=== PATIENT | female | born 1950 | race Caucasian/White ===

== ENCOUNTER 2017-08-22 09:18 | Emergency (ER) | payer MEDICARE, BC ==
[2017-08-22 09:30] VITALS: BP 134/73
--- NOTE | 2017-08-22 10:03 | UC ---
Lower Extremity/Ankle HPI - HPI Summary HPI Summary: ONSET OF RIGHT HEEL PAIN 2 DAYS AGO. WORSE AFTER WALKING ON IT OVER THE DAY. NO TRAUMA OR DISCRETE INJURY. NO SWELLING. PT IS RETIRED. - History of Current Complaint Chief Complaint: UCLowerExtremity Stated Complaint: FOOT INJURY Time Seen by Provider: 08/22/17 09:57 Hx Obtained From: Patient Onset/Duration: Gradual Onset, Lasting Days, Still Present Severity Initially: Moderate Severity Currently: Moderate Pain Intensity: 5 Pain Scale Used: 0-10 Numeric Aggravating Factor(s): Standing, Ambulation Alleviating Factor(s): Rest Able to Bear Weight: Yes - Allergies/Home Medications Allergies/Adverse Reactions: Allergies Allergy/AdvReac Type Severity Reaction Status Date / Time Sulfa Antibiotics Allergy Intermediate Rash Verified 07/20/15 13:22 PMH/Surg Hx/FS Hx/Imm Hx Psychological History: Depression - Surgical History Surgical History: Yes Surgery Procedure, Year, and Place: nasal surgery 10 years ago; repair of deviated septum & "cleaned out" her sinuses. - Family History Known Family History: Positive: Hypertension - Social History Alcohol Use: Occasionally Substance Use Type: None Smoking Status (MU): Current Some Day Smoker Type: Cigarettes Amount Used/How Often: 1/2 PPD Length of Time of Smoking/Using Tobacco: 40 YEARS Have You Smoked in the Last Year: No Household Exposure Type: Cigarettes Review of Systems Constitutional: Negative Skin: Negative Respiratory: Negative Cardiovascular: Negative Gastrointestinal: Negative Musculoskeletal: Other: - RIGHT HEEL PAIN All Other Systems Reviewed And Are Negative: Yes Physical Exam Triage Information Reviewed: Yes Appearance: Well-Appearing, No Pain Distress, Well-Nourished Vital Signs: Initial Vital Signs Temp 96.8 F 08/22/17 09:25 Pulse 93 08/22/17 09:25 Resp 18 08/22/17 09:25 BP 134/73 08/22/17 09:25 Pulse Ox 100 08/22/17 09:25 Vital Signs Reviewed: Yes Eyes: Positive: Conjunctiva Clear ENT: Positive: Hearing grossly normal Neck: Positive: Supple Respiratory: Positive: No respiratory distress, No accessory muscle use Cardiovascular: Positive: Pulses Normal Abdomen Description: Positive: Soft Musculoskeletal: Positive: ROM Intact, No Edema, Other: - TTP RIGHT HEEL, PROXIMALLY AND LATERALLY. NOT TENDER OVER PLANTAR FASCIA Neurological: Positive: Alert Psychological: Positive: Age Appropriate Behavior Skin: Negative: rashes Diagnostics - Radiology RIGHT HEEL XRAY Xray Interpretation: No Acute Changes Radiology Interpretation Completed By: Radiologist Lower Extremity Course/Dx - Differential Dx/Diagnosis Provider Diagnoses: RIGHT HEEL PAIN Discharge - Discharge Plan Condition: Stable Disposition: HOME Referrals: Marlene Woodard MD [Primary Care Provider] - If Needed Additional Instructions: UNCLEAR CAUSE OF YOUR HEEL PAIN. CONSIDER THAT IT MAY BE DUE TO THE WAY YOUR BODY WEIGHT IS DISTRIBUTED WHEN YOU WALK IN CONJUNCTION WITH SHOES THAT MAY LACK PROPER SUPPORT. XRAY TODAY UNREMARKABLE. FOLLOW-UP WITH PODIATRY FOR FURTHER EVALUATION. PODIATRY IN [facility] Dr. Jasiel Latham [address] Rufino Harry. Please call his office at [phone] to make an appointment to be seen Dr. Master Hagen. Please call his office at [phone] to make an appointment to be seen
--- NOTE | 2017-08-22 10:30 | RAD ---
HISTORY: Right heel pain COMPARISONS: None VIEWS: 4, lateral, axial, and bilateral oblique views of the right calcaneus FINDINGS: BONE DENSITY: Normal. BONES: There is no displaced fracture. JOINTS: There is no arthropathy. ALIGNMENT: There is no dislocation. SOFT TISSUES: Unremarkable. OTHER FINDINGS: None. IMPRESSION: NO ACUTE OSSEOUS INJURY. IF SYMPTOMS PERSIST, RECOMMEND REPEAT IMAGING.
== END 2017-08-22 11:07 | disposition home or self-care (01) ==
LOC: UCEAST 09:18
DX: M79.671 Pain in right foot (principal); Z72.0 Tobacco use
CPT/HCPCS: 99211; G0463

== ENCOUNTER 2018-02-06 09:25 | Day surgery (SDC) | payer MEDICARE, BC ==
[~2018-02-06 09:25] MED LIST: Acetaminophen TAB* 325 MG PO PRN; Buffered Lidocaine 0.9% SYRIN* 5 ML/SYR SYRINGE INTRADERM ONE; Cyclopentolate 1% OPTH.SOL* 2 ML BTL ONE; Ketorolac 0.5% OPHTH (NF) 0.5 % 5 ML BTL ONE; Lidocaine 1% MPF* 2 ML VIAL ONE; Lidocaine 2% EPI 1:200000 MPF*10-20 ML VIAL ONE; Neomycin/Polymy/Dex OPTH.SUSP* MAXITROL 0.1% 5 ML ONE; Phenylephrine 2.5% OPTH.SOL* 2 ML BTL ONE; Povidone Iodine 5% OPTH* 30 ML BTL ONE; Proparacaine 0.5% OPHTH.SOL* 15 ML BTL ONE; acetaZOLAMIDE TAB* 250 MG ONE
[2018-02-06] MEDS ORDERED: Midazolam* 1 MG/ML 2 ML VIAL (2 MG) ONE ×2 (11:02→11:31)
[2018-02-06 12:20] VITALS: BP 121/71
--- NOTE | 2018-02-06 12:25 | OP ---
DATE OF OPERATION: 02/06/2018. DATE OF : 1950. SURGEON: Toni Scales M.D. PREOPERATIVE DIAGNOSIS: Cataract right eye. POSTOPERATIVE DIAGNOSIS: Cataract right eye. OPERATIVE PROCEDURE: Extracapsular cataract extraction with intraocular lens implant right eye. PROCEDURE: The patient was brought to the operating room after being given 1/2% Alcaine with epineph rine drops in the preoperative area. The eye was prepped and draped in the usual sterile fashion. S terile drape and eyelid speculum were placed. Again, topical 1/2% Alcaine with epinephrine was given . A paracentesis incision was made at the 9 o'clock position with the No.75 blade. Clear cornea inc ision 2.2 x 2.2-mm was created at the 12 o'clock position starting at the anterior limbus using the 2 .2-mm keratome. The anterior chamber was irrigated with 0.4 mL of 1% non-preservative intracameral l idocaine and filled with DisCoVisc. A capsulorrhexis was completed using the cystotome and the Utrat a forceps. Hydrodissection was performed with balanced salt solution. The lens nucleus was removed w ith the Phacoemulsification handpiece without incident. Cortex was removed with the irrigation-aspir ation handpiece. The capsular bag was re-inflated using DisCoVisc and an [id number] implant was inser yaz with the shooter, oriented to the 82 degree meridian. Horizontal reference wilcox were made with the patient in the seated position in the preoperative area. The irrigation-aspiration handpiece was used to remove all residual DisCoVisc. The eye was refilled with balanced salt solution and the wou nd checked and found to be watertight. Topical Maxitrol drops were given. [id number]/[facility] #: [id number]
== END 2018-02-06 12:04 | disposition home or self-care (01) ==
LOC: OREAST 09:25
PROVIDERS: ATTEND Specialist
DX: H25.811 Combined forms of age-related cataract, right eye (principal); F17.210 Nicotine dependence, cigarettes, uncomplicated
CPT/HCPCS: A9270-GY; J2250; V2787

== ENCOUNTER 2018-02-13 07:02 | Day surgery (SDC) | payer MEDICARE, BC ==
[~2018-02-13 07:02] MED LIST changes: -Acetaminophen TAB* 325 MG PO PRN; -Cyclopentolate 1% OPTH.SOL* 2 ML BTL ONE; -Ketorolac 0.5% OPHTH (NF) 0.5 % 5 ML BTL ONE; -Lidocaine 1% MPF* 2 ML VIAL ONE; -Lidocaine 2% EPI 1:200000 MPF*10-20 ML VIAL ONE; -Neomycin/Polymy/Dex OPTH.SUSP* MAXITROL 0.1% 5 ML ONE; -Phenylephrine 2.5% OPTH.SOL* 2 ML BTL ONE; -Povidone Iodine 5% OPTH* 30 ML BTL ONE; -Proparacaine 0.5% OPHTH.SOL* 15 ML BTL ONE; -acetaZOLAMIDE TAB* 250 MG ONE
[2018-02-13] MEDS ORDERED: Midazolam* 1 MG/ML 2 ML VIAL (2 MG) ONE (08:45)
[2018-02-13] MEDS ORDERED: Propofol* 10 MG/ML 20 ML BTL IV PUSH ONE (08:55)
[2018-02-13 09:07] VITALS: BP 116/65
[2018-02-13] MEDS ORDERED: Lidocaine 2% EPI 1:200000 MPF*10-20 ML VIAL ONE (12:17)
[2018-02-13] MEDS ORDERED: Phenylephrine 2.5% OPTH.SOL* 2 ML BTL ONE (12:17)
[2018-02-13] MEDS ORDERED: Cyclopentolate 1% OPTH.SOL* 2 ML BTL ONE (12:17)
[2018-02-13] MEDS ORDERED: Lidocaine 1% MPF* 2 ML VIAL ONE (12:17)
[2018-02-13] MEDS ORDERED: Povidone Iodine 5% OPTH* 30 ML BTL ONE (12:17)
[2018-02-13] MEDS ORDERED: Neomycin/Polymy/Dex OPTH.SUSP* MAXITROL 0.1% 5 ML ONE (12:17)
[2018-02-13] MEDS ORDERED: acetaZOLAMIDE TAB* 250 MG ONE (12:17)
[2018-02-13] MEDS ORDERED: Proparacaine 0.5% OPHTH.SOL* 15 ML BTL ONE (12:17)
[2018-02-13] MEDS ORDERED: Ketorolac 0.5% OPHTH (NF) 0.5 % 5 ML BTL ONE (12:17)
--- NOTE | 2018-02-14 05:34 | OP ---
DATE OF OPERATION: 02/13/18 [facility] DATE OF : [birth year]. SURGEON: Toni Scales M.D. PREOPERATIVE DIAGNOSIS: Cataract, left eye. POSTOPERATIVE DIAGNOSIS: Cataract, left eye. OPERATIVE PROCEDURE: Extracapsular cataract extraction with intraocular lens implant left eye. DESCRIPTION OF PROCEDURE: The patient was brought to the operating room after being given 1/2% Alcaine with epinephrine drops in the preoperative area. The eye was prepped and draped in the usual sterile fashion. Sterile drape and eyelid speculum were placed. Again, topical 1/2% Alcaine with epinephrine was given. A paracentesis incision was made at the 3 o'clock position with the No.75 blade. Clear cornea incision 2.2 x 2.2-mm was created at the 6 o'clock position starting at the anterior limbus using the 2.2-mm keratome. The anterior chamber was irrigated with 0.4 mL of 1% non-preservative intracameral lidocaine and filled with DisCoVisc. A capsulorrhexis was completed using the cystotome and the Utrata forceps. Hydrodissection was performed with balanced salt solution. The lens nucleus was removed with the Phacoemulsification handpiece without incident. Cortex was removed with the irrigation-aspiration handpiece. The capsular bag was re-inflated using DisCoVisc and an [id number] implant was inserted with the shooter oriented to 101 degree meridian. Horizontal reference wilcox were made with the patient in the seated position in the preoperative area. The irrigation-aspiration handpiece was used to remove all residual DisCoVisc. The eye was refilled with balanced salt solution and the wound checked and found to be watertight. Topical Maxitrol drops were given. [id number]/[facility] #: [id number] [facility]
[2018-02-15] MEDS ORDERED: Acetaminophen TAB* 325 MG PO PRN (05:00)
== END 2018-02-13 09:12 | disposition home or self-care (01) ==
LOC: OREAST 07:02
PROVIDERS: ATTEND Specialist
DX: H25.812 Combined forms of age-related cataract, left eye (principal); F17.210 Nicotine dependence, cigarettes, uncomplicated; Z96.1 Presence of intraocular lens
CPT/HCPCS: A9270-GY; J2250; J2704; V2787

== ENCOUNTER 2018-08-06 12:56 | Emergency (ER) | payer MEDICARE, BC ==
--- NOTE | 2018-08-06 13:01 | UC ---
Abdominal Pain Female HPI - HPI Summary HPI Summary: 68 yo female presents with severe RUQ abdominal pain and vomiting since early this morning. 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 She has a history of chronic constipation. Over the last 5 days has had one or two very hard small BMs. Early this morning woke up in the middle of the night vomiting green bile and has been vomiting since. She thought it might be due to her lack of BM and therefore did an enema - says it had mild results with more hard stool coming out. Did not relieve any pain. She has not been able to eat or drink today, but has been the previous days. She denies fever, chills, SOB, chest pain. - History of Current Complaint Stated Complaint: VOMITING ABDOMINAL PAIN Time Seen by Provider: 08/06/18 13:01 Hx Obtained From: Patient Onset/Duration: Sudden Onset Severity Initially: Severe Severity Currently: Severe Pain Intensity: 8 Pain Scale Used: 0-10 Numeric Allergies/Adverse Reactions: Allergies Allergy/AdvReac Type Severity Reaction Status Date / Time Sulfa (Sulfonamide Allergy Hives Verified 08/06/18 13:04 Antibiotics) amoxicillin AdvReac See Comment Verified 08/06/18 13:04 Home Medications: Home Medications Acetaminophen TAB* [Tylenol TAB*] 650 mg PO Q8H PRN 08/06/18 [History Confirmed 08/06/18] PMH/Surg Hx/FS Hx/Imm Hx Psychological History: Anxiety, Depression - Surgical History Surgical History: Yes Surgery Procedure, Year, and Place: [place] [facility] [place] [facility] [place] [facility] [place] 2018 - Family History Known Family History: Positive: Hypertension - Social History Lives: With Family Alcohol Use: None Alcohol Amount: reports 4-5 vodka mixed drinks weekly Substance Use Type: None Smoking Status (MU): Current Some Day Smoker Type: Cigarettes, eCigarettes Amount Used/How Often: 1/2 ppd for 10 yrs - quit 6 mos ago - vapes now Length of Time of Smoking/Using Tobacco: 40 YEARS Have You Smoked in the Last Year: No Household Exposure Type: Cigarettes - Immunization History Most Recent Influenza Vaccination: 2018 Most Recent Pneumonia Vaccination: 2017 Review of Systems Constitutional: Negative Skin: Negative Respiratory: Negative Cardiovascular: Negative Gastrointestinal: Abdominal Pain, Vomiting, Nausea Genitourinary: Negative Neurovascular: Negative Neurological: Negative Psychological: Negative All Other Systems Reviewed And Are Negative: Yes Physical Exam - Summary Physical Exam Summary: GENERAL: Right shoulder in sling. Appears to be in mild discomfort. SKIN: No rashes, sores, lesions, or open wounds. NECK: Supple. Nontender. No lymphadenopathy. CHEST: CTAB. No r/r/w. No accessory muscle use. Breathing comfortably and in no distress. CV: RRR. Without m/r/g. Pulses intact. Cap refill <2seconds ABDOMEN: Moderate RUQ and epigastric TTP. Mild generalized distention. Bowel sounds hypoactive. NEURO: Alert. PSYCH: Age appropriate behavior. Triage Information Reviewed: Yes Vital Signs: Vital Signs: Temp Pulse Resp BP Pulse Ox 98.1 F 87 18 164/85 99 08/06/18 13:06 08/06/18 13:06 08/06/18 13:06 08/06/18 13:06 08/06/18 13:06 Vital Signs Reviewed: Yes Abd Pain Female Course/Dx - Course Course Of Treatment: Given her recent surgery and narcotic use with few small hard BMs, there is a concern she may have a small-bowel obstruction. I discussed the need for advanced imagaing and a higher level of care possible including labwork/imaging to r/o other post-operative complications and advised pt and her friend with her today that they be further evaluated in the ED. Pt was agreeable to this - declined ambulance as her friend with her today will drive her. - Differential Dx/Diagnosis Provider Diagnoses: Post-op right shoulder arthroplasty. Constipation. RUQ pain Discharge - Sign-Out/Discharge Documenting (check all that apply): Patient Departure All imaging exams completed and their final reports reviewed: No Studies - Discharge Plan Condition: Stable Disposition: HOME-RECOMMEND TO ED Referrals: Marlene Woodard MD [Primary Care Provider] - Additional Instructions: Please go to the ER for further evaluation of your abdominal pain and vomiting. There is a concern that you may have a bowel obstruction - Billing Disposition and Condition Condition: STABLE Disposition: Home-Recommend to ED
[2018-08-06 13:14] VITALS: BP 164/85
== END 2018-08-06 13:30 | disposition home health service (06) ==
LOC: UCEAST 12:56
DX: K59.00 Constipation, unspecified (principal); F17.210 Nicotine dependence, cigarettes, uncomplicated; R10.11 Right upper quadrant pain; Z98.890 Other specified postprocedural states; Z88.2 Allergy status to sulfonamides; Z88.0 Allergy status to penicillin
CPT/HCPCS: 99212; G0463

== ENCOUNTER → 2018-08-06 13:56 | Emergency (ER) | payer MEDICARE, BC ==
[~2018-08-06 13:56] MED LIST changes: -Buffered Lidocaine 0.9% SYRIN* 5 ML/SYR SYRINGE INTRADERM ONE; +HYDROmorphone INJ* 1 MG/ML CARPUJECT SYRINGE IV ONE; +HYDROmorphone INJ1* 1 MG/ML SYRINGE ONE; +Ondansetron INJ* 2 MG/ML VIAL IV ONE
--- NOTE | 2018-08-06 15:11 | ED ---
Abdominal Pain/Female - HPI Summary HPI Summary: The pt is a 68 y/o female presenting to [facility] c/o RUQ pain since 1 day ago worsened today at 14:30 hrs. The sharp pain is rated 8/10 in severity. She was sent to the ED from Urgent Care to rule out bowel obstruction. She notes nausea , vomiting, constipation, flatulence, loss of appetite, abdominal distension and chronic back pain .The pt had a total R shoulder replacement surgery 6 days ago and is on Oxycodone, which she last took at 1930 hrs yesterday. She took two Colace capsules, Milk of Magnesia and used Fleet saline Enema today, to no relief. - History of Current Complaint Chief Complaint: EDAbdPain Stated Complaint: ABD PAIN/VOMITING Time Seen by Provider: 08/06/18 14:35 Hx Obtained From: Patient Onset/Duration: Gradual Onset, Lasting Days - 1 day, Still Present, Worse Since - 14:30 hrs today Timing: Constant Severity Initially: Severe Severity Currently: Severe Pain Intensity: 8 Pain Scale Used: 0-10 Numeric Location: Discrete At: RUQ Character: Sharp Alleviating Factor(s): Nothing Associated Signs and Symptoms: Positive: Back Pain - Chronic, Constipation, Decreased Appetite, Nausea, Vomiting, Other: - Flatulancr, abdominal distension Allergies/Adverse Reactions: Allergies Allergy/AdvReac Type Severity Reaction Status Date / Time Sulfa (Sulfonamide Allergy Hives Verified 08/06/18 14:26 Antibiotics) amoxicillin AdvReac See Comment Verified 08/06/18 14:26 Home Medications: Home Medications Sodium Phosphate ADULT ENEMA* [Fleet Enema*] 1 dose .SEE ORDER DAILY 08/06/18 [ History Confirmed 08/06/18] PMH/Surg Hx/FS Hx/Imm Hx Previously Healthy: No Endocrine/Hematology History: Denies: Hx Diabetes, Hx Thyroid Disease Cardiovascular History: Denies: Hx Hypertension, Other Cardiovascular Problems/Disorders Respiratory History: Denies: Hx Asthma, Hx Chronic Obstructive Pulmonary Disease (COPD), Other Respiratory Problems/Disorders GI History: Denies: Hx Ulcer, Other GI Disorders History: Denies: Other Problems/Disorders Musculoskeletal History: Reports: Hx Arthritis - knees, shoulders, Other Musculoskeletal History - Right shoulder fx 2009 Sensory History: Reports: Hx Cataracts - Bilateral, Hx Contacts or Glasses - readers Denies: Hx Hearing Aid Opthamlomology History: Reports: Hx Cataracts - Bilateral, Hx Contacts or Glasses - readers Neurological History: Denies: Other Neuro Impairments/Disorders Psychiatric History: Reports: Hx Anxiety, Hx Depression - Cancer History Cancer Type, Location and Year: None reported - Surgical History Surgery Procedure, Year, and Place: tubal ligation - 1969[facility] - [facility] [place]. [place] - [facility] [place]. bilateral cataract extractions with iol's - 2017 - [facility] [place]. Right shoulder arthroplasty 2018 Hx Anesthesia Reactions: No Infectious Disease History: No Infectious Disease History: Denies: Hx Hepatitis, Hx Human Immunodeficiency Virus (HIV), Traveled Outside the [place] in Last 30 Days - Family History Known Family History: Positive: Hypertension - Social History Occupation: Retired Lives: With Family Alcohol Use: None Alcohol Amount: reports 4-5 vodka mixed drinks weekly Substance Use Type: Reports: None Smoking Status (MU): Current Some Day Smoker Type: Cigarettes, eCigarettes Amount Used/How Often: 1/2 ppd for 10 yrs - quit 6 mos ago - vapes now Length of Time of Smoking/Using Tobacco: 40 YEARS Have You Smoked in the Last Year: No Review of Systems Gastrointestinal: Other - Positive: Abdominal distension, flatulance, constipation Positive: Abdominal Pain - RUQ , Vomiting, Nausea Musculoskeletal: Other - Positive: Back pain Positive: Arthralgia - R shoulder- chronic All Other Systems Reviewed And Are Negative: Yes Physical Exam - Summary Physical Exam Summary: Appearance: The patient is well-nourished in no acute distress and in no acute pain. Skin: The skin is warm and dry and skin color reflects adequate perfusion. HEENT: The head is normocephalic and atraumatic. The pupils are equal and reactive. The conjunctivae are clear and without drainage. Nares are patent and without drainage. Mouth reveals moist mucous membranes and the throat is without erythema and exudate. The external ears are intact. The ear canals are patent and without drainage. The tympanic membranes are intact. Neck: The neck is supple with full range of motion and non-tender. There are no carotid bruits. There is no neck vein distension. Respiratory: Chest is non-tender. Lungs are clear to auscultation and breath sounds are symmetrical and equal. Cardiovascular: Heart is regular rate and rhythm. There is no murmur or rub auscultated. There is no peripheral edema and pulses are symmetrical and equal. Abdomen: The abdomen is soft and tender in the RUQ. There are normal bowel sounds heard in all four quadrants and there is no organomegaly palpated. Musculoskeletal: There is no back tenderness noted. Extremities are non-tender with full range of motion. There is good capillary refill. There is no peripheral edema or calf tenderness elicited. Neurological: Patient is alert and oriented to person, place and time. The patient has symmetrical motor strength in all four extremities. Cranial nerves are grossly intact. Deep tendon reflexes are symmetrical and equal in all four extremities. Psychiatric: The patient has an appropriate affect and does not exhibit any anxiety or depression. Triage Information Reviewed: Yes Vital Signs On Initial Exam: Initial Vitals Temp Pulse Resp BP Pulse Ox 98.6 F 87 20 165/76 100 08/06/18 14:21 08/06/18 14:21 08/06/18 14:21 08/06/18 14:21 08/06/18 14:21 Vital Signs Reviewed: Yes Diagnostics - Vital Signs Vital Signs Temp Pulse Resp BP Pulse Ox 08/06/18 14:21 98.6 F 87 20 165/76 100 - Laboratory Result Diagrams: 08/06/18 15:22 08/06/18 15:22 Lab Statement: Any lab studies that have been ordered have been reviewed, and results considered in the medical decision making process. - CT Abd/Pel CT CT Interpretation Completed By: Radiologist - IMPRESSION: 1. Moderate stool burden throughout the proximal and transverse colon. Correlate clinically with signs/symptoms of constipation. 2. Other chronic findings, as above. The ED physician reviewed this radiology report. - Ultrasound No standard instances Ultrasound Interpretation Completed By: Radiologist - GALLBLADDER US IMPRESSION : #. Hepatosteatosis. #. Cholelithiasis. No compelling secondary findings to favor acute cholecystitis. #. Negative for RIGHT kidney hydronephrosis. The ED physician reviewed this radiology report. Abdominal Pain Fem Course/Dx - Course Course Of Treatment: Ms. Callahan presented to the emergency department with a complaint of right upper quadrant pain which started a couple hours prior to arrival. She had surgery on her right shoulder about a week ago, took oxycodone every 6 hours supplemented by a gram of Tylenol twice a day for 2-3 days, and has been taking Tylenol approximately 2 g a day subsequently. She has been nauseated for couple of days and vomited today. Her main complaint is right upper quadrant pain. Here she was tender in the right upper quadrant with normal vitals. She was found to have a mild leukocytosis of about 17,000 and mild elevations of her transaminases. Ultrasound of her gallbladder was unremarkable as was noncontrasted CT of her abdomen. It did show moderate constipation and she assures me that she has suffered from constipation her whole life. I don't think she's been taking enough Tylenol to have injured her liver but I don't have a good explanation for her liver enzymes. I think they need to be followed closely. I'm going to give her some laxative to try to clear her out and separate the constipation out from the pain. I recommended close follow-up in the next 1-2 days. - Diagnoses Provider Diagnoses: Elevated transaminase level, Abdominal pain Discharge - Sign-Out/Discharge Documenting (check all that apply): Patient Departure - DC - Discharge Plan Condition: Stable Disposition: HOME Prescriptions: Peg 3000 Gi Lavage* [Golytely*] 1,000 ml PO ONCE #1 btl Patient Education Materials: Abdominal Pain (ED) Referrals: Marlene Woodard MD [Primary Care Provider] - Additional Instructions: Follow up with your PCP in 1-2 days Return to ED for any new or worsening symptoms - Billing Disposition and Condition Condition: STABLE Disposition: Home - Attestation Statements Document Initiated by Jesi: Yes Documenting Scribe: Ramila Pierce Provider For Whom Jesi is Documenting (Include Credential): Dr. Hai Coronel MD Scribe Attestation: Ramila Mckeon , scribed for Dr. Hai Coronel MD on 08/06/18 at 2042. Scribe Documentation Reviewed: Yes Provider Attestation: The documentation as recorded by the Ramila tracy accurately reflects the service I personally performed and the decisions made by me, Dr. Hai Coronel MD
[2018-08-06 15:37] LABS: ABS Basophils 0.2 10^3/ul (0-0.2); ABS Eosinophils 0 10^3/ul (0-0.6); ABS Lymphocytes 1.6 10^3/ul (1.0-4.8); ABS Neutrophils 13.2 10^3/ul (1.5-7.7); ABS Nucleated RBC 0 10^3/ul; Eosinophil % 0.3 % (0-6); Hematocrit 36 % (35-47); Hemoglobin 12.3 g/dl (12.0-16.0); Lymphocyte % 9.9 % (25-47); Mean Corpuscular HGB Conc 34 g/dl (31-36); Mean Corpuscular Hemoglobin 31 pg (27-31); Mean Corpuscular Volume 91 fL (80-97); Mean Platelet Volume 7.8 um3 (7.4-10.4); Nucleated Red Blood Cells % 0.1; Platelet Count 527 10^3/ul (150-450); Red Blood Count 3.96 10^6/ul (4.00-5.40); Red Cell Distribution Width 13 % (10.5-15); White Blood Count 15.9 10^3/ul (3.5-10.8)
[2018-08-06 15:59] LABS: EGFR Non-African American 88.1 (>60)
--- NOTE | 2018-08-06 16:47 | RAD ---
Indication: RIGHT upper quadrant pain. Comparison: No relevant prior exams available on the [facility] PACS for comparison. Technique: RIGHT upper quadrant ultrasound. Report: Acoustic window for ultrasound exam is limited due to arm sling and limited range of motion. Appropriate direction flow documented in the portal and hepatic veins. 14.4 cm liver is increased in echogenicity consistent with hepatosteatosis with suggestion of regions of focal sparing.. Negative for suspicious focal hepatic lesions. Negative for intrahepatic biliary dilatation. 3.7 mm common bile duct. Adequately distended gallbladder with 1.9 mm normal thickness wall is remarkable for a probable sludge ball with small stones or solitary approximate 2.4 cm stone at the fundus. Trace pericholecystic fluid noted. Negative for sonographic Lange's sign. The pancreatic head, body, and tail are significantly obscured due to bowel gas limiting assessment. The pancreas appears echogenic favoring partial fatty replacement. Negative for ascites. 10.3 x 4.8 x 4.7 cm RIGHT kidney is unremarkable. Normal diameter abdominal aorta visualized through the bifurcation. IMPRESSION: #. Hepatosteatosis. #. Cholelithiasis. No compelling secondary findings to favor acute cholecystitis. #. Negative for RIGHT kidney hydronephrosis.
--- NOTE | 2018-08-06 18:03 | RAD ---
EXAM: CT Abdomen and Pelvis Without Intravenous Contrast CLINICAL HISTORY: 68 years old, female; Pain; Abdominal pain; Additional info: Right flank pain TECHNIQUE: Axial computed tomography images of the abdomen and pelvis without intravenous contrast. All CT scans at this facility use at least one of these dose optimization techniques: automated exposure control; mA and/or kV adjustment per patient size (includes targeted exams where dose is matched to clinical indication); or iterative reconstruction. Coronal and sagittal reformatted images were created and reviewed. COMPARISON: No relevant prior studies available. FINDINGS: Lung bases: Linear atelectasis versus scarring in the right lower lobe. ABDOMEN: Liver: Unremarkable. Gallbladder and bile ducts: Unremarkable. No calcified stones. No ductal dilation. Pancreas: Unremarkable. No ductal dilation. Spleen: Unremarkable. No splenomegaly. Adrenals: Unremarkable. No mass. Kidneys and ureters: Unremarkable. No obstructing stones. No hydronephrosis. Stomach and bowel: Moderate stool burden throughout the proximal and transverse colon. No obstruction. No mucosal thickening. PELVIS: Appendix: No findings to suggest acute appendicitis. Bladder: Unremarkable. No stones. Reproductive: 1 cm calcification in the right ovary. Uterus and left ovary are unremarkable. ABDOMEN and PELVIS: Intraperitoneal space: Unremarkable. No free air. No significant fluid collection. Bones/joints: Chronic mild compression deformity of the superior endplate of L3. Multilevel degenerative changes of the visualized spine. No dislocation. Soft tissues: Unremarkable. Vasculature: Atherosclerotic calcifications of the aorta and major branches. No abdominal aortic aneurysm. Lymph nodes: Unremarkable. No enlarged lymph nodes. IMPRESSION: 1. Moderate stool burden throughout the proximal and transverse colon. Correlate clinically with signs/symptoms of constipation. 2. Other chronic findings, as above. To contact [facility] with a general question: Operations Center - [phone] For direct physician to physician contact: Physician Hotline - [phone] [facility] ([facility] Facility ID #[id number])
[2018-08-06 19:12] VITALS: BP 153/71
== END | disposition home or self-care (01) ==
LOC: ED 13:56
DX: R10.11 Right upper quadrant pain (principal); R74.0 Nonspecific elevation of levels of transaminase and lactic acid dehydrogenase [LDH]; F17.210 Nicotine dependence, cigarettes, uncomplicated; Z88.2 Allergy status to sulfonamides; K80.20 Calculus of gallbladder without cholecystitis without obstruction; K59.00 Constipation, unspecified; Z98.890 Other specified postprocedural states; Z88.0 Allergy status to penicillin
CPT/HCPCS: 36415; 74176; 76705; 80053; 83605; 83690; 85025; 86140; 96374; 96375; 99212; 99283; G0463; J1170; J2405